=== PATIENT | male | born 1955 | race Caucasian/White ===

== ENCOUNTER → 2023-09-20 08:37 | Outpatient (REF) | payer OTHER, SELFPAY | LOC: HWRAD 08:37 | PROVIDERS: ATTENDING PHYSICIAN Internal Medicine Critical Care Medicine; FAMILY PHYSICIAN Family Medicine | DX: Z87.891 Personal history of nicotine dependence (principal) | CPT/HCPCS: 71271 ==

== ENCOUNTER 2024-01-27 18:16 | Emergency (ER) | payer OTHER, SELFPAY ==
[2024-01-27 18:22] VITALS: BP 172/118
[2024-01-27 18:53] LABS: % Basophils 0.6 % (0-2); % Eosinophils 1.1 % (0-6); % Immature Granulocytes 0.2 % (0-0.5); % Lymphocytes 29.9 % (20.5-51.1); % Monocytes 7.8 % (1.7-9.3); % Neutrophils 60.4 % (42.2-75.2); Absolute Eosinophils 0.1 10^3/uL (0-0.7); Absolute Monocytes 0.5 10^3/uL (0.1-0.6); Hematocrit 34.9 % (39.0-52.0); Mean Corp Hgb Conc. 37.2 g/dL (33.0-37.0); Mean Corpuscular Hgb 32.7 pg (27.0-31.0); Mean Corpuscular Volume 87.7 fL (80.0-94.0); Mean Platelet Volume 10.6 fL (7.4-10.4); Nucleated Red Blood Cells % 0 % (-); Platelet Count 157 10^3/uL (130-400); Red Blood Cell Count 3.98 10^6/uL (4.70-6.10); Red Cell Dist. Width 12.3 % (11.5-14.5); White Blood Cell Count 6.7 10^3/uL (4.8-10.8)
[2024-01-27 19:12] LABS: ALT (SGPT) 20 U/L (0-50); AST (SGOT) 25 U/L (17-59); Albumin 4.9 g/dl (3.5-5.0); Alkaline Phosphatase 52 U/L (38-126); Blood Urea Nitrogen 17 mg/dl (9-20); Calcium 9.8 mg/dl (8.4-10.2); Carbon Dioxide 27 mmol/L (22-30); Chloride 103 mmol/L (98-107); Glucose 124 mg/dl (70-99); Potassium 3.9 mmol/L (3.5-5.1); Sodium 143 mmol/L (135-145); Total Bilirubin 0.6 mg/dl (0.2-1.3); Total Protein 7.3 g/dl (6.3-8.2); eGFR > 60.00
[2024-01-27 20:31] VITALS: BMI 26.8
[2024-01-27 20:34] VITALS: BP 132/90
--- NOTE | 2024-01-27 21:18 | ED.GENMED ---
History of Present Illness
General
Chief Complaint: Nose Bleed
Time Seen by Provider: 01/27/24 20:04
History of Present Illness
History of Present Illness:
68-year-old male presents to the emergency department for evaluation of recurrent nosebleeds over the past 2 days. Last episode began approximate 1 hour ago and has not resolved despite direct pressure. Does not take any anticoagulants or
antiplatelets but has noted significant hypertension during these episodes. Saw his primary care physician was initiated on antihypertensives. Denies any nasal trauma or known bleeding disorders
Past History
Past History
ED Past Medical History: NIDDM (Diet-controlled) and Other (History of pneumonia, spontaneous pneumothorax)
ED Past Surgical History: Appendectomy, Orthopedic and Other (Right sided lung wedge resection and pleurodesis for spontaneous pneumothorax)
Social History
Tobacco: Smoker
Alcohol: None
Personal:
Living: with family
Family History
Family History: CAD; Negative Early CAD
Review of Systems
Review of Systems
Allergies reviewed?: Yes
All Other Systems: ROS reviewed and negative except as documented in HPI and ROS
Phy Exam
Physical Exam
Physical Exam:
GEN: Well appearing, NAD, WDWN
HEENT: Oral mucosa moist, no scleral icterus. No evidence of active hemorrhaging from either nare. Evidence of recent bleeding to the inner left nasal septum
Cardiac: Regular rate
Lung: No respiratory distress, no tachypnea
MSK: No gross deformity or injuries
Skin: Good color, no pallor or jaundice, no rashes
Neuro: AO x3, moves all extremities freely
Psych: Calm, cooperative
Course
Orders/Labs/Results
Orders:
Orders
01/27/24 18:39
Type+Screen Urgent
CBC/With Diff [Complete Blood Count/With Diff] Urgent
CMP [Comprehensive Metabolic Panel] Urgent
Abnormal Lab Results
01/27/24
18:39
RBC 3.98 L 10^6/uL
(4.70-6.10)
Hct 34.9 L %
(39.0-52.0)
MCH 32.7 H pg
(27.0-31.0)
MCHC 37.2 H g/dL
(33.0-37.0)
MPV 10.6 H fL
(7.4-10.4)
Glucose 124 H mg/dl
(70-99)
01/27/24 18:39
01/27/24 18:39
Vital Signs
Initial and Last Documented VS:
Initial Vital Signs
Temp Pulse Resp BP Pulse Ox
98.7 F 102 20 172/118 96
01/27/24 18:22 01/27/24 18:22 01/27/24 18:22 01/27/24 18:22 01/27/24 18:22
Last Documented Vital Signs
Temp Pulse Resp BP Pulse Ox
98.7 F 89 16 132/90 96
01/27/24 18:22 01/27/24 20:34 01/27/24 20:34 01/27/24 20:34 01/27/24 20:34
Procedures
Nosebleed
Drug treatment: Lidocaine and Epinephrine
Treatment: local pressure applied and Silver nitrate cautery
Post treatment bleeding: none- good control
*Critical Care Note
Total Time (30-74mins, 75-104mins- exclusive of procedures): Not Applicable
ED Attending Note
-
Portions of this chart may have been created with voice recognition software.� Occasional wrong word or��sound alike� substitutions may have occurred due to the inherent limitations of voice recognition software.
Discharge Plan
Departure
Patient Disposition: Home (Routine Discharge)
Date of Disposition: 01/27/24
Time of Disposition: 21:21
Patient with high blood pressure during this ER visit?: No
Discharge Problem:
Left-sided epistaxis
Instructions: Nosebleeds (DC)
Prescriptions:
No Action
tamsulosin 0.4 MG capsule
0.4 mg PO Q12H
multivitamin with folic acid [Tab-A-Norma] 1 TABLET tablet
1 tab PO DAILY
cholecalciferol (vitamin D3) 1,000 UNITS tablet
2,000 units PO DAILY
meloxicam 15 MG tablet
15 mg PO DAILY PRN (Reason: pain)
sulfamethoxazole-trimethoprim 1 EACH tablet
1 ea PO Q12H
ascorbic acid (vitamin C) [Vitamin C] 500 MG tablet
500 mg PO DAILY
ibuprofen [Advil] 200 MG tablet
400 mg PO Q4H
omega 6-khl-cgl-fish oil [Fish Oil] 1 EACH capsule
3 ea PO DAILY
tildrakizumab-asmn [Ilumya] 100 MG/ML syringe
100 mg SQ .[id number]
acetaminophen 325 MG tablet
650 mg PO Q4HPRN PRN (Reason: mild pain )
halobetasol propionate 1 APPLIC ointment
1 applic topical DAILY PRN (Reason: skin)
calcipotriene-betamethasone [Enstilar] 60 GM foam
60 gm TP PRN PRN (Reason: skin)
halobetasol propion-tazarotene [Duobrii] 100 GM lotion
100 gm TP PRN PRN (Reason: skin)
Referrals:
Elmo Padgett MD [Family Provider] -
Rojelio Cain MD [Active] -
Activity Restrictions/Additional Instructions:
Continue with saline rinses
Apply Vaseline or Neosporin to the inner nostril once daily
Return if bleeding returns and does not stop with pressure for 15 minutes
Follow up with ENT
Interventions
Interventions:
*Risk Screen - Suicide Last Done: 01/27/24 18:22
*General Assessment Last Done: 01/27/24 20:31
*Neglect/Abuse Screening Last Done: 01/27/24 20:31
ED- Fall Risk Assessment Last Done: 01/27/24 20:31
*ED COVID-19 Vaccine History Last Done: 01/27/24 20:31
ED-EENT Assessment Last Done: 01/27/24 20:31
Discharge Date and Time
Print Language: TURKISH
== END 2024-01-27 21:41 | disposition home or self-care (01) ==
LOC: EMR 18:16
PROVIDERS: EMERGENCY PHYSICIAN Emergency Medicine; FAMILY PHYSICIAN Family Medicine
DX: R04.0 Epistaxis (principal); I10 Essential (primary) hypertension; E11.9 Type 2 diabetes mellitus without complications; F17.200 Nicotine dependence, unspecified, uncomplicated; Z82.49 Family history of ischemic heart disease and other diseases of the circulatory system; Z90.49 Acquired absence of other specified parts of digestive tract
CPT/HCPCS: 99283; 30901; 80053; 85025; 86850; 86900; 86901

== ENCOUNTER → 2024-09-20 08:29 | Outpatient (REF) | payer OTHER, SELFPAY | LOC: HWRAD 08:29 | PROVIDERS: ATTENDING PHYSICIAN Internal Medicine Critical Care Medicine; FAMILY PHYSICIAN Family Medicine | DX: Z87.891 Personal history of nicotine dependence (principal) | CPT/HCPCS: 71271 ==

== ENCOUNTER 2024-09-23 13:00 | Emergency (ER) | payer OTHER, SELFPAY ==
[2024-09-23 13:07] VITALS: BP 174/94
[2024-09-23 13:36] LABS: % Basophils 0.5 % (0-2); % Eosinophils 0.9 % (0-6); % Immature Granulocytes 0.2 % (0-0.5); % Lymphocytes 36.3 % (20.5-51.1); % Monocytes 9.2 % (1.7-9.3); % Neutrophils 52.9 % (42.2-75.2); Absolute Lymphocytes 1.6 10^3/uL (1.2-3.4); Absolute Monocytes 0.4 10^3/uL (0.1-0.6); Absolute Neutrophils 2.3 10^3/uL (1.4-6.5); Hematocrit 34.9 % (39.0-52.0); Hemoglobin 12.6 g/dL (13.0-18.0); Mean Corp Hgb Conc. 36.1 g/dL (33.0-37.0); Mean Corpuscular Hgb 31.9 pg (27.0-31.0); Mean Corpuscular Volume 88.4 fL (80.0-94.0); Mean Platelet Volume 10.9 fL (7.4-10.4); Nucleated Red Blood Cells % 0 % (-); Platelet Count 145 10^3/uL (130-400); Red Blood Cell Count 3.95 10^6/uL (4.70-6.10); Red Cell Dist. Width 12.6 % (11.5-14.5); White Blood Cell Count 4.4 10^3/uL (4.8-10.8)
[2024-09-23 13:41] LABS: ALT (SGPT) 18 U/L (0-50); AST (SGOT) 23 U/L (17-59); Albumin 4.8 g/dl (3.5-5.0); Alkaline Phosphatase 59 U/L (38-126); Blood Urea Nitrogen 14 mg/dl (9-20); Calcium 9.5 mg/dl (8.4-10.2); Carbon Dioxide 27 mmol/L (22-30); Chloride 108 mmol/L (98-107); Glucose 149 mg/dl (70-99); Potassium 3.9 mmol/L (3.5-5.1); Sodium 144 mmol/L (135-145); Total Bilirubin 0.8 mg/dl (0.2-1.3); Total Protein 7.2 g/dl (6.3-8.2); eGFR > 60.00
[2024-09-23 13:54] LABS: Troponin I < 0.012 ng/ml
[2024-09-23 14:52] VITALS: BP 142/79
[2024-09-23 14:55] VITALS: BMI 25.7
--- NOTE | 2024-09-23 15:44 | ED.GENMED ---
History of Present Illness
General
Chief Complaint: Heart Rate Problem
Source: patient
Exam Limitations: none
Time Seen by Provider: 09/23/24 15:26
Nursing documentation reviewed up to this point in time: agreed with
History of Present Illness
History of Present Illness:
see MDM
Past History
Past History
ED Past Medical History: NIDDM (Diet-controlled) and Other (History of pneumonia, spontaneous pneumothorax)
ED Past Surgical History: Appendectomy, Orthopedic and Other (Right sided lung wedge resection and pleurodesis for spontaneous pneumothorax)
Social History
Tobacco: Smoker
Alcohol: None
Personal:
Living: with family
Family History
Family History: CAD; Negative Early CAD
Phy Exam
Physical Exam
Physical Exam:
GENERAL: Alert , in no apparent distress, very well appeainr
EYE: pupils equal and reactive
NECK: Supple
ENT: o/p clr, mmm.
CARDIAC: Regular rate and rhythm .mumru systolic sounding 3/6
LUNGS: Clear breath sounds bilaterally, no acute respiratory distress, no wheezes/rales/rhonchi
ABDOMEN: Soft, without focal tenderness, no r/g, no cvat, normal bowel sounds
NEUROLOGICAL: Alert and oriented, no focal neuro deficits
SKIN: Warm and dry, skin intact.
MUSCULOSKELETAL: No edema, well perfused. neg ken's sign
PSYCH: Normal and appropriate interaction.
Course
Orders/Labs/Results
Orders:
Orders
09/23/24 13:01
ECG [Electrocardiogram (*1)] Urgent
Reason for Study: Palpitations
EKG- Treatment ONCE
09/23/24 13:13
Complete Blood Count/With Diff Urgent
Comprehensive Metabolic Panel Urgent
TSH Reflex To Free T4 Urgent
Comment: ADD ON
Troponin I Urgent
09/23/24 15:42
Add On- LAB Urgent
Tests Added?: tsh reflex t4
Abnormal Lab Results
09/23/24
13:13
WBC 4.4 L 10^3/uL
(4.8-10.8)
RBC 3.95 L 10^6/uL
(4.70-6.10)
Hgb 12.6 L g/dL
(13.0-18.0)
Hct 34.9 L %
(39.0-52.0)
MCH 31.9 H pg
(27.0-31.0)
MPV 10.9 H fL
(7.4-10.4)
Chloride 108 H mmol/L
(98-107)
Glucose 149 H mg/dl
(70-99)
09/23/24 13:13
09/23/24 13:13
Vital Signs
Initial and Last Documented VS:
Initial Vital Signs
Temp Pulse Resp BP Pulse Ox
36.4 C 79 20 174/94 98
09/23/24 13:07 09/23/24 13:07 09/23/24 13:07 09/23/24 13:07 09/23/24 13:07
Last Documented Vital Signs
Temp Pulse Resp BP Pulse Ox
36.4 C 65 16 142/79 99
09/23/24 13:07 09/23/24 16:00 09/23/24 16:00 09/23/24 14:52 09/23/24 16:00
MDM/Problems Addressed
Differential Diagnosis Includes:
see MDM
MDM/Problems Addressed:
Note:
CHIEF COMPLAINT(S)
Palpitations described as skipped heartbeats.
HISTORY OF PRESENT ILLNESS
The patient is a 68-year-old male presenting with palpitations experienced as perceived skipped heartbeats starting this morning. The patient described the sensation as feeling four beats followed by a skipped beat, occurring intermittently and
becoming concerning. The heart rate taken at home this morning was 63 beats per minute, with a blood pressure reading of 123/81 mmHg. The palpitations were associated with mild lightheadedness and shortness of breath, particularly when physically
active. The patient denied any chest pain during these episodes.
The patient's psychiatrist stopped buspar 1 mo ago and is weaning his lamictal;
in the process, pt has had low BP readings 90s/60s with dizziness so he stopped his valsartan on his own (about 2 weeks ago)
pt had CT scan (routine) for monitoring of his pulm nodules 3 days ago
he has a 4.6 cm ascending aortic aneurysm that is stable per the results
ADDITIONAL HISTORY OBTAINED FROM SOURCES OTHER THAN THE PATIENT
The patient mentioned that the winter sports manager has not been involved in their care. They have a family physician, Dr. padgett, who is typically consulted regarding blood pressure management.
EXTERNAL RECORDS REVIEWED
EKG shows the patient is in sinus rhythm with PVCs, and lab work reveals normal serum electrolytes but the thyroid levels have not yet been checked. A low-dose chest CT scan was performed recently with no notable changes and previous records
mentioned aortic stenosis possibly seen in a scan.
CHRONIC MEDICAL CONDITIONS SIGNIFICANTLY AFFECTING CARE
The patient has a history of hypertension.
SOCIAL DETERMINANTS AFFECTING HEALTH
The patient reported quitting alcohol 20 years ago and ceased cigarette smoking in 2018.
REVIEW OF SYSTEMS
- Cardiovascular: Palpitations with skipped beats
- Respiratory: Mild shortness of breath on exertion
- General: Lightheadedness
PHYSICAL EXAM
- Cardiovascular: EKG indicates normal sinus rhythm with premature ventricular contractions
Nursing notes reviewed and vital signs reviewed.
PROBLEM LIST
Acute:
- Palpitations
- Premature ventricular contractions
Chronic:
- Hypertension
PLAN
1. Obtain thyroid function tests to rule out any thyroid-related etiology.
2. Consider the initiation of beta-blockers to manage symptomatic premature ventricular contractions, pending tolerance given the history of hypotension.
3. Follow up with a winter sports manager for further evaluation of possible aortic stenosis and consideration of an echocardiogram for definitive assessment.
4. Explore management options with the family physician, Dr. Mcallister, regarding blood pressure and potential beta-jessica therapy.
DIFFERENTIAL DIAGNOSIS
The Differential Diagnosis includes, in no particular order and is not limited to:
- Atrial fibrillation
- Premature ventricular contractions
- Aortic stenosis
- Thyrotoxicosis
- Electrolyte disturbances
- Anxiety-induced palpitations
- Cardiomyopathy
- Valvular heart disease
- Coronary artery disease
- Pulmonary embolism
CARE-UPDATE
09/23/24 - 16:03
Lab results show a slight decrease in white blood cell count at 4.4 and mildly low hemoglobin at 12.6, both not concerning. Kidney function and electrolytes normal. Non-fasting glucose at 149 not indicative of diabetes. Negative cardiac enzymes
confirmed no heart attack. Previous CT scan indicates a stable aortic aneurysm and pulmonary nodules, with coronary artery calcifications noted. Suggest cholesterol management. Lack of an echocardiogram noted; recommend follow-up with winter sports manager
for echo and aortic aneurysm monitoring. Considering past hypotension, potential adjustment of blood pressure medication suggested, possibly with a reduced dose of previous medication, Valsartan/HCTZ. Discussion of palpitations suggests likely PVCs;
Holter monitor suggested for further evaluation of heart rhythm. Patient advised to reduce caffeine intake, stay hydrated, and maintain a balanced diet to manage PVCs. Thyroid panel ordered, results to follow. Instructed to follow up with primary
care and winter sports manager for blood pressure check and echo. Warned of potential complications if lymph node or hernia symptoms worsen.
d/w ed attending who agreed
i did reach out to his PCP to let him know he was here, he will get him in to be seen
*Pulse Oximetry
Patient hypoxic: no
Comment: 99%
*Critical Care Note
Total Time (30-74mins, 75-104mins- exclusive of procedures): Not Applicable
Comment
Comment:
PERC Neg
pt made aware of murmur; will f/u with cards
ED Attending Note
-
Portions of this chart may have been created with voice recognition software.� Occasional wrong word or��sound alike� substitutions may have occurred due to the inherent limitations of voice recognition software.
Discharge Plan
Departure
Patient Disposition: Home (Routine Discharge)
Date of Disposition: 09/23/24
Time of Disposition: 16:06
Patient with high blood pressure during this ER visit?: Yes
Condition: Fair
Covid-19: Not Applicable
Discharge Problem:
Palpitations
Instructions: Ventricular premature beats, Palpitations (DC), BLOOD PRESSURE
Prescriptions:
No Action
tamsulosin 0.4 MG capsule
0.4 mg PO Q12H
multivitamin with folic acid [Tab-A-Norma] 1 TABLET tablet
1 tab PO DAILY
cholecalciferol (vitamin D3) 1,000 UNITS tablet
2,000 units PO DAILY
meloxicam 15 MG tablet
15 mg PO DAILY PRN (Reason: pain)
sulfamethoxazole-trimethoprim 1 EACH tablet
1 ea PO Q12H
ascorbic acid (vitamin C) [Vitamin C] 500 MG tablet
500 mg PO DAILY
ibuprofen [Advil] 200 MG tablet
400 mg PO Q4H
omega 4-ucb-prd-fish oil [Fish Oil] 1 EACH capsule
3 ea PO DAILY
tildrakizumab-asmn [Ilumya] 100 MG/ML syringe
100 mg SQ .[id number]
acetaminophen 325 MG tablet
650 mg PO Q4HPRN PRN (Reason: mild pain )
halobetasol propionate 1 APPLIC ointment
1 applic topical DAILY PRN (Reason: skin)
calcipotriene-betamethasone [Enstilar] 60 GM foam
60 gm TP PRN PRN (Reason: skin)
halobetasol propion-tazarotene [Duobrii] 100 GM lotion
100 gm TP PRN PRN (Reason: skin)
Referrals:
Elmo Padgett MD [Family Provider, Family Practice] - Follow up in 2-3 days
Reno De Los Santos, [Active, Cardiology] - Follow up in 1 week
Activity Restrictions/Additional Instructions:
YOUR PALPITATIONS WERE LIKEY DUE TO PVCS (PREMATURE VENTRICULAR CONTRACTIONS) WHICH ARE BENIGN
MAKE SURE TO STAY HYRDRATED, AVOID CAFFFEINE
YOU DID HAVE A MURMUR ON EXAM THAT WILL REQUIRE FOLLOW UP WITH ECHO AND OTHER TESTING
I LET DR PADGETT KNOW
MONITOR YOUR BLOOD PRESSURE, YOU MAY NEED TO RESTART YOUR MECDICATION IF IT REMAINS HIGH BUT DR. PADGETT SAID HE WOULD SEE YOU THIS WEEK
RETURN FOR: PASSING OUT, WROSENING SHORTNESS OF BREATH, FEVER, CHEST MANJIT OR ANY CONCERNS.
Interventions
Interventions:
*Risk Screen - Suicide Last Done: 09/23/24 13:07
*General Assessment Last Done: 09/23/24 13:07
*Neglect/Abuse Screening Last Done: 09/23/24 14:56
*ED- Fall Risk Assessment Last Done: 09/23/24 14:56
*ED COVID-19 Vaccine History Last Done: 09/23/24 14:56
*Nursing Disposition Last Done: 09/23/24 16:25
ED- Cardiac Assessment Last Done: 09/23/24 14:56
ED- Pulmonary Assessment Last Done: 09/23/24 14:56
Discharge Date and Time
Discharge Date/Time: 09/23/24 16:30
Print Language: BULGARIAN
[2024-09-23 17:03] LABS: TSH Reflex To Free T4 1.09 uIU/ml (0.47-4.68)
== END 2024-09-23 16:30 | disposition home or self-care (01) ==
LOC: EMR 13:00
PROVIDERS: Emergency Medicine; EMERGENCY PHYSICIAN Emergency Medicine; FAMILY PHYSICIAN Family Medicine
DX: R00.2 Palpitations (principal); R06.02 Shortness of breath; R42 Dizziness and giddiness; R01.1 Cardiac murmur, unspecified; E11.9 Type 2 diabetes mellitus without complications; Z87.01 Personal history of pneumonia (recurrent); I10 Essential (primary) hypertension; I71.21 Aneurysm of the ascending aorta, without rupture; N40.0 Benign prostatic hyperplasia without lower urinary tract symptoms; R91.8 Other nonspecific abnormal finding of lung field; I49.3 Ventricular premature depolarization; I25.10 Atherosclerotic heart disease of native coronary artery without angina pectoris; M19.90 Unspecified osteoarthritis, unspecified site; Z87.891 Personal history of nicotine dependence
CPT/HCPCS: 99283; 80053; 84443; 84484; 85025; 93005

== ENCOUNTER → 2024-10-15 15:39 | Outpatient (REF) | payer OTHER, SELFPAY | LOC: RCS 15:39 | PROVIDERS: ATTENDING PHYSICIAN Family Medicine; REFERRING PHYSICIAN Internal Medicine Cardiovascular Disease | DX: I49.3 Ventricular premature depolarization (principal); I77.819 Aortic ectasia, unspecified site | CPT/HCPCS: 93306 ==

== ENCOUNTER 2024-11-29 06:07 | Day surgery (SDC) | payer OTHER, SELFPAY ==
[2024-11-29] VITALS (7 sets, daily range): BP systolic 111–141; BP diastolic 69–83; BMI 25.1
[2024-11-29] MEDS: NORMOSOL-R/PLASMALYTE-A 1000 IV (09:41)
[2024-11-29] MEDS: TYLENOL 1000 MG PO (09:41)
--- NOTE | 2024-11-29 10:39 | W.SUR.PREOP ---
Pre-Operative Surgical Note
-
I have examined this patient prior to the performance of the scheduled procedure.
The patient's condition is unchanged from the time of the current History and
Physical and the patient is able to undergo the scheduled procedure.
--- NOTE | 2024-11-29 10:39 | HP.FOC2 ---
Focused History & Physical
Chief Complaint
HPI:
Chief Complaint: Left inguinal hernia
HPI / Indication for Planned Procedure: This is a 69-year-old male with a symptomatic left inguinal hernia. Will plan for a robotic left inguinal hernia repair with mesh.
Relevant Past Medical History: Negative
Relevant Social History: Negative
Relevant Family History: Negative
Relevant Past Surgical History: Negative
Review of Systems
Review of Pertinent Systems: All Systems Negative
Medication
See Medication form for detailed medications: Yes
Medication List (including Herbals & OTC):
tamsulosin 0.4 mg capsule 0.4 mg PO DAILY 06/17/17
halobetasol propionate 0.01 %-tazarotene 0.045 % lotion (Duobrii) 100 gm TP PRN PRN skin 02/02/21
ibuprofen 200 mg tablet (Advil) 200 mg PO PRN PRN pain 02/02/21
tildrakizumab-asmn 100 mg/mL subcutaneous syringe (Ilumya) 100 mg SQ Q3M 02/02/21
acetaminophen 500 mg tablet 1,000 mg PO Q6H PRN pain 11/22/24
amoxicillin 500 mg tablet 500 mg PO TID 11/22/24
atorvastatin 10 mg tablet 10 mg PO DAILY 11/22/24
cholecalciferol (vitamin D3) 125 mcg (5,000 unit) tablet (Vitamin D3) 125 mcg PO DAILY 11/22/24
meloxicam 15 mg tablet 15 mg PO DAILY 11/22/24
multivitamin 1 tab PO DAILY 11/22/24
omega 1-sik-qhy-fish oil 1,200 mg (144 mg-216 mg) capsule (Fish Oil) 2 cap PO DAILY 11/22/24
propranolol 40 mg tablet 40 mg PO BID 11/22/24
sertraline 25 mg tablet 50 mg PO DAILY 11/22/24
trazodone 100 mg tablet 100 mg PO HS 11/22/24
valsartan 160 mg-hydrochlorothiazide 12.5 mg tablet 0.5 tab PO DAILY 11/22/24
Medications Reviewed: Yes
Allergies and Reactions
Patient has Allergies: No
Noted Allergies and Reactions:
Allergy/AdvReac Type Severity Reaction Status Date / Time
No Known Allergies Allergy Verified 11/29/24 09:23
Pertinent Physical Exam
All Other Systems: Negative
Head/Neck: Normal
Diagnosis / Assessment
This is a 69-year-old male with a symptomatic left inguinal hernia.
Plan / Procedure
Will plan for a robotic left inguinal hernia repair with mesh.
Anesthesia/Sedation to be done by Anesthesia Provider: Yes
--- NOTE | 2024-11-29 12:27 | W.IMMPOSTOP ---
Surgical Immed Post Op Note
-
Primary Surgeon: Maurice Bojorquez MD
Assisting Surgeon: None
Pre-op Diagnosis: left inguinal hernia
Post-op Diagnosis: Same
Procedure Performed:
1. Robotic left inguinal hernia repair with mesh.
2. Excision of spermatic cord lipoma
Anesthesia Type: General
Specimen / Cultures: Left cord lipoma
Estimated Blood Loss: 3 cc
Complications: None
Operative Findings: Small indirect inguinal hernia, small direct inguinal hernia. Small cord lipoma removed. After achieving the critical view of the MPO, the floor was reinforced with a large left Bard 3D max mid weight uncoated polypropylene
mesh.
--- NOTE | 2024-11-29 12:28 | OR.RPT ---
Operative Report
Operative Report
Patient Name: Bernardo Cannon
: 1955
Date of Operation: 11/29/2024
Preoperative Diagnosis: Reducible Inguinal hernia, left
Postoperative Diagnosis: Same
Procedure(s):
1. Robotic Inguinal Hernia Repair with mesh, left (HENRI approach)
2. Excision of lesion of a spermatic cord lipoma ([id number])
Surgeon(s):
Dr. Bojorquez
Tortilla Maker(s):
KEV Johnson
Anesthesia: General
Estimated Blood Loss: 3 cc
Urine Output: None
Drains/Lines/Implants: Large 3D Max Bard mid weight uncoated polypropylene mesh
Specimens: None
Indication for surgery: The patient has a history of groin pain and noted on exam to have a Left inguinal Hernia(s). Following review of therapeutic options they have elected to undergo a minimally invasive repair.
Operative Findings: Small indirect inguinal hernia, small direct inguinal hernia. Small cord lipoma removed. After achieving the critical view of the MPO, the floor was reinforced with a large left Bard 3D max mid weight uncoated polypropylene
mesh.
Details of the operation:
The patient was brought to the Operating Room and placed in the supine position with the arms tucked. IV antibiotics were infused and Venodyne stockings placed. Following uneventful induction of general endotracheal anesthesia, an orogastric tube
was placed. The abdomen was prepped and draped in the usual sterile fashion. The abdomen was entered using a Veress technique which required 1 pass(es), pneumoperitoneum to 15 mmHg was obtained without difficulty. An 8mm trochar was passed through
the abdominal wall roughly 20 cm cephalad to the inguinal canal. We then confirmed that no inadvertent injury was made while passing the trocar or Veress needle. We then placed two additional 8 mm ports in the left upper and right upper quadrants.
We then docked the robot with a Prograsper in the left hand port and monopolar scissors in the right. The patient was noted to have an indirect left inguinal hernia. There was also some adhesions from the omentum to the anterior abdominal wall
which were lysed with sharp dissection. We then began by creating a flap at the level of the ASIS laterally working our way medially to the medial umbilical fold. Staying onto the peritoneum we were able to circumferentially dissect around the
hernia sac and and peel it off of the underlying spermatic cord and testicular vessels, taking care to preserve them. Medially we identified the midline pubis as well as Flaco's ligament and ensured to dissect 2 cm below the pubic rim over the
bladder. After exposure of the entire myopectineal orifice we identified and reduced: A small sized indirect inguinal hernia, a small weakness in the direct inguinal space, no femoral hernia, a small cord lipoma, which was removed
We then fixated a large 3D max mesh with a 2-0 Vicryl stitch at coopers medially and superior laterally. The flap was then closed with a running 2-0 barbed monocryl suture ensuring that the tail was cut flush with the medial fat pad so that no
barbs were exposed. During the closure of the flap an Angiocath was inserted and 20 cc of quarter percent Marcaine was instilled. The area in the flap cavity was then evacuated of air confirming that the mesh was flush and there were no folds. A
few small rents in the peritoneum were noted and closed with 2-0 Vicryl. All needles and instruments were then removed and the robot was undocked. The abdomen was then desufflated, and pneumoperitoneum evacuated. All skin sites were then closed
with 4-0 Monocryl followed by Dermabond. Counts were correct and overall, the patient tolerated the procedure well and was taken to the Recovery Room postoperatively in stable condition.
I was the attending physician and performed the procedure with assistance of the RN ANESTHESIOLOGY above. I was present for all portions of the case
Maurice Bojorquez MD
== END 2024-11-29 13:37 | disposition home or self-care (01) ==
LOC: SDS 06:07
PROVIDERS: ATTENDING PHYSICIAN Surgery
DX: K40.90 Unilateral inguinal hernia, without obstruction or gangrene, not specified as recurrent (principal); D17.6 Benign lipomatous neoplasm of spermatic cord
CPT/HCPCS: 49650; 88304; C1781

== ENCOUNTER → 2025-02-21 07:28 | Outpatient (REF) | payer OTHER, SELFPAY | LOC: RAD 07:28 | PROVIDERS: ATTENDING PHYSICIAN Physician Assistant Medical; FAMILY PHYSICIAN Family Medicine | DX: R10.A2 Flank pain, left side (principal) | CPT/HCPCS: 74176 ==

== ENCOUNTER 2025-04-02 06:37 | Day surgery (SDC) | payer OTHER, SELFPAY | END 2025-04-02 09:43 | disposition home or self-care (01) | LOC: GI 06:37 | PROVIDERS: ATTENDING PHYSICIAN Student in an Organized Health Care Education/Training Program | DX: Z12.11 Encounter for screening for malignant neoplasm of colon (principal); D12.2 Benign neoplasm of ascending colon; D12.5 Benign neoplasm of sigmoid colon; K63.5 Polyp of colon; K57.30 Diverticulosis of large intestine without perforation or abscess without bleeding; D12.8 Benign neoplasm of rectum; K56.690 Other partial intestinal obstruction | CPT/HCPCS: 45385; 88305 ==